=== PATIENT | male | born 1990 | race African-American/Black ===

== ENCOUNTER 2022-11-21 19:55 | Emergency (ER) | payer SELFPAY ==
[~2022-11-21] VITALS: Ht 177.8 cm; Wt 91.0 kg
[2022-11-22 02:19] LABS: CHLORIDE 105 mEq/L (98-107)
[2022-11-22 02:26] LABS: BASOPHILS % 0.8 % (0.0-2.0); EOSINOPHILS % 2.7 % (0.0-5.0); HEMATOCRIT. 44.3 % (42.0-52.0); LYMPHOCYTES % 40.5 % (20.0-50.0); MEAN CORPUSCULAR HEMOGLOBIN 31.3 pg (28.0-32.0); MEAN CORPUSCULAR VOLUME 92.5 fL (80.0-94.0); MEAN PLATELET VOLUME 7.6 fl (7.4-10.4); MONOCYTES % 5.1 % (2.0-8.0); NEUTROPHILS % 50.9 % (40.0-76.0); PLATELET 235 x1000/uL (130-400); RED BLOOD CELL COUNT 4.79 mill/uL (4.7-6.1); RED CELL DISTRIBUTION WIDTH 13.8 % (11.6-14.6)
[2022-11-22 03:30] VITALS: BP 142/95
== END 2022-11-22 03:39 | disposition home or self-care (01) ==
LOC: ER 19:55
DX: R00.2 Palpitations (principal); R07.9 Chest pain, unspecified
CPT/HCPCS: 36415; 71045; 80048; 84484; 85025; 93005; 99285